=== PATIENT | male | born 1990 | race Caucasian/White ===

== ENCOUNTER 2017-01-02 05:50 | Day surgery (SDC) | payer OTHER ==
[~2017-01-02] VITALS: Ht 195.6 cm; Wt 87.4 kg
[2017-01-02] VITALS (7 sets, daily range): BP systolic 127–142; BP diastolic 56–80; PULSE 56–82; RESP 12–18; O2SAT 99–100
[~2017-01-02 05:50] MED LIST: CeFAZolin Inj 2 GM in IV Premix 1 EACH IV ONE; SERT20OR6 PO
[2017-01-02] MEDS ORDERED: Propofol 10,000 mCg/mL 20 mL Inj ONE (05:51)
[2017-01-02] MEDS ORDERED: Glycopyrrolate 0.2 MG/ML 1mL Inj ONE (05:51)
[2017-01-02] MEDS ORDERED: fentaNYL-PF 50 mCg/mL 2 mL Inj ONE (05:51)
[2017-01-02] MEDS ORDERED: Ondansetron 2 mg/mL 2 mL Inj ONE (05:51)
[2017-01-02] MEDS ORDERED: Rocuronium 10 mg/mL 5 mL Inj ONE (05:51)
[2017-01-02] MEDS ORDERED: Neostigmine 1 mg/mL 10 mL Inj ONE (05:51)
[2017-01-02] MEDS: Lactated Ringer's 1,000 ML IV SCH ×2 (05:54→07:36)
[2017-01-02] MEDS ORDERED: CeFAZolin Inj 2 gm / 50mL D5W IV ONE (05:55)
[2017-01-02] MEDS ORDERED: IBUP200C PO (06:48)
--- NOTE | 2017-01-02 06:54 | PCM.HPANE ---
Patient Data Surgeon Admitting Provider: Attending Provider:Misha Phan DPM Primary Care Physician:Harmeet Other Provider:Marcio Reyes Anesthesia Reason for Visit Traumatic Left Achilles Tendon Rupture Ht/WT & BMI Height (Feet): 6 Height (Inches): 5.00 Weight (Kilograms): 87.4 Body Mass Index 22.00 Allergies Coded Allergies: No Known Allergies (Unverified , 12/31/16) Past Anesthesia History Anesthesia History: Denies:: Anesthesia Reactions, Malignant Hyperthermia Diabetes History Hx Diabetes?: No Medications Home Meds Incl Beta Taylor: No Reported Medications Ibuprofen 200 Mg [id number] Mg PO QID PRN For Pain Ref 0 01/02/17 Sertraline HCl (Sertraline)20 Mg/1 Ml Oral.conc75 Mg PO DAILY #1 BOTTLE Ref 0 12/31/16 History History of ENT Problems?: No HEENT History: Denies:: Abnormal Airway Cataracts Difficult Intubation Dysphagia Glaucoma Hearing Problem Sinus Problem TMJ Denture Type: None Teeth Condition: Within Normal Limits Hx of Heart Problems?: No Cardiovascular History: Denies:: AICD Abdominal Aortic Aneurism Atrial Fibrillation Cardiac Surgery Chest Pain Congestive Heart Failure Coronary Artery Disease Edema Heart Murmur Hypertension Irregular Heartbeat Pacemaker Peripheral Vascular Rheumatic Fever Thrombophlebitis Valvular Heart Disease Hx of Respiratory Problem?: No Respiratory History: Denies:: Asthma COPD Chest Surgery Cough Dyspnea Emphysema Hemoptysis Oxygen Administration Pneumonia Pulmonary Embolism Tuberculosis Use of C-PAP Machine Use of Inhalers / NEBS Hx Neurologic Problems?: No Neurological History: Denies:: Alzheimer's Disease CVA Dementia Dizziness Headaches Multiple Sclerosis Parkinson's Disease Peripheral Neuropathy Seizures TIA Hx of GI Problems?: Yes Gastrointestinal History: Denies:: Cirrhosis Diverticulitis Gall Bladder Disease Gastroesphageal Reflux Gastrointestinal Bleeding Heartburn Hepatitis Hiatal Hernia Liver Disease Rectal Bleeding Other GI Pertinent History: S/P LT INGUINAL HERNIA RPR-CHILDHOOD Hx of Problems?: No HX of Peritoneal Dialysis: No Skin History: Positive for:: History Skin Disorders? (S/P EXC CYST RT CHEEK) Hx Musculoskeletal Problems?: Yes Musculoskeletal History: Positive for:: Musculoskeletal Trauma (HX FX LT HAND 5TH DIGIT LT ACHILLES TENDON RUPTURE=CURRENT PROBLEM) Hx of Psycho/Social Problems?: Yes Psycho Social History: Positive for:: Anxiety (SITUATIONAL) Hx Surgeries?: Yes (EXC CYST RT CHEEK,LT INGUINAL HERNIA RPR) Hx Any Other Health Problems?: Yes Other History: Denies:: Cancer Endocrine Disease Hx Diabetes: No Stop/Bang S-Snoring: Do You Snore Loudly: No T-Tired: feel tired, fatigued: No O-Obsered: Observed not breath: No P-Blood Pressure: treated: No B- Body Mass Index > 35 kg/m2: No A- Age over 50: No N- Neck Large Circumference: No G- Gender Male: Yes SHIRLEY Total Score: 1 Risk Assessment Category Category 1A: Patient has history of documented sleep apnea, and HAS NOT received any narcotic, sedative or anesthesia administration during this stay. Category 1B: Patient has history of documented sleep apnea, and HAS received any narcotic , sedative or anesthesia administration during this stay Category 2: Patient has SUSPECTED Obstructive Sleep Apnea, and HAS received any narcotic , sedative or anesthesia administration during this stay. Category 3: Patient has SUSPECTED Obstructive Sleep Apnea and HAS NOT received narcotic, sedative or anesthesia administration during this stay. Category 4: Outpatient in Procedural Areas with known sleep apnea or who screen positive for High Risk via the STOP/BANG questionnaire. Exam Exam Vital Signs Vital Signs Date Time Temp Pulse Resp B/P Pulse Ox O2 Delivery O2 Flow Rate FiO2 01/02/17 06:40 59 16 127/60 100 01/02/17 06:30 36.9 82 18 142/64 99 Room Air General Appearance: Alert, Oriented X3, Cooperative, No Acute Distress HEENT/AIRWAY: MP 2, Neck Movement (from), Mouth Opening (wnl) Lungs: Clear to Auscultation Heart: Exam Unremarkable Meds/Labs/Diagnostics Admission Meds Current Medications Lactated Ringer's (Lr) 1,000 ml @ 120 mls/hr Q8H20M IV Last administered on t 05:54; Start 01/02/17 at 05:00; Stop 01/02/17 at 13:19 Plan Impression Patient chart reviewed, patient interviewed and anesthestic plan with risks, benefits, and alternatives discussed, and informed consent obtained. ASA Physical Status: ASA2 Mod Systemic Disease Anesthetic Plan: GA Bene/Risks/Altern/Consents: Yes HP Complete Prior to Induction: Yes Tomás Hodges MD January 02, 2017 06:54
[2017-01-02] MEDS ORDERED: Bupivacaine 0.5%/EPI 50 mL Inj INFILTRATE ONE (08:21)
[2017-01-02] MEDS ORDERED: Lactated Ringer's 1,000 ML IV ONE (08:38)
[2017-01-02] MEDS ORDERED: Lactated Ringer's 1,000 ML IV SCH (08:48)
[2017-01-02] MEDS ORDERED: Lactated Ringer's 500 ML IV PRN (08:48)
[2017-01-02] MEDS ORDERED: Atropine 0.4 mg/mL Inj IVPUSH PRN (08:50)
[2017-01-02] MEDS ORDERED: Ondansetron 2 mg/mL 2 mL Inj IVPUSH PRN (08:50)
[2017-01-02] MEDS ORDERED: Phenylephrine 10,000 mCg/mL Inj IVPUSH PRN (08:50)
[2017-01-02] MEDS ORDERED: Labetalol 5 mg/mL 4 mL Inj IV PRN (08:50)
[2017-01-02] MEDS ORDERED: hydrALAZINE 20 mg/mL Inj IVPUSH PRN (08:50)
[2017-01-02] MEDS ORDERED: EPHEDrine Sulfate 50 mg/mL Inj IVPUSH PRN (08:50)
[2017-01-02] MEDS ORDERED: fentaNYL-PF 50 mCg/mL 2 mL Inj IVPUSH PRN (08:50)
[2017-01-02] MEDS ORDERED: HYDROmorphone 1 mg/mL Inj IVPUSH PRN (08:50)
[2017-01-02] MEDS ORDERED: Dexamethasone 4 mg/mL Inj IVPUSH PRN (08:50)
--- NOTE | 2017-01-02 10:52 | PCM.ANEP1 ---
Post Anesthesia PACU Phase 1 Assessment Vital Signs Vital Signs Date Time Temp Pulse Resp B/P Pulse Ox O2 Delivery O2 Flow Rate FiO2 01/02/17 10:30 56 12 130/70 99 Room Air 01/02/17 10:05 61 14 130/60 99 Room Air 01/02/17 10:00 63 13 130/58 100 Room Air 01/02/17 09:53 36.3 63 12 128/56 100 Room Air 01/02/17 06:40 59 16 127/60 100 01/02/17 06:30 36.9 82 18 142/64 99 Room Air Anesthetic Administered: GA Level of Alertness: Awake, talking QUINTANILLA's with Equal Strength: Yes Pain: No Nausea or Vomiting: No CV Function and Hydration: No Airway Device: Oxygen Delivery: Room Air Lungs: Normal Air Movement PACU Phase 2 Assessment Complications: No Follow up Care: No Patient Instructions Provided: N/A Tomás Hodges MD January 02, 2017 10:52
[2017-01-02] MEDS ORDERED: oxyCODONE-Acetamin 5-325 mg Tablet PO ONE ×2 (11:22→11:40)
[2017-01-02] MEDS ORDERED: hydrOXYzine Pamoate 25 mg Capsule ONE (11:39)
--- NOTE | 2017-01-03 17:35 | OP ---
[address] [address] OPERATIVE REPORT PATIENT: SYLVIE PEARSON : 1990 MR#: [id number] ADMIT: 01/02/2017 JOB ID: [id number] DATE OF SURGERY: 01/02/2017 SURGEON: Misha Phan DPM PREOPERATIVE DIAGNOSIS(ES): Traumatic myotendinous rupture of left Achilles. POSTOPERATIVE DIAGNOSIS(ES): Traumatic myotendinous rupture of left Achilles. PLANNED PROCEDURE: Open repair and augmentation of left Achilles. ANESTHESIA: General with local block. HEMOSTASIS: None. ESTIMATED BLOOD LOSS: Less than 5 cc. COMPLICATIONS: None. PROCEDURE AND FINDINGS: This patient was brought to the operating room and placed on the table in prone position after inducing general anesthesia. We checked all relevant pressure points and accommodated them for skin protection. The left lower extremity was prepped and draped in normal sterile surgical manner. Prior to incision, I placed an incisional block with 2% lidocaine with epinephrine. The incision was placed on the medial margin of the palpable left Achilles. The location and length of incision guided by MRI findings which were available for use in surgery. The incision was carried down to the paratenon using sharp and blunt dissection, carefully cauterizing and/or ligating any bleeders that were encountered. No major vascular or neurologic structures were exposed. Caution was given to preserving the soft tissue planes lateral to the medial of center incision. The paratenon was then incised in a linear fashion from proximal to distal. There was an area of damage to this tissue plane corresponding to the underlying Achilles damage. The tendon was found to be grossly frayed with numerous levels of avulsion at the myotendinous juncture. There were still some areas of tendon retained within the muscle which were preserved and prepared as part of this correction. I was able to reestablish normal 50-70 degree rotation of the tendon body prior to temporary placement into the deficit. I then freed an area at the gastroc and soleus interface, fashioning this into a bundle and incorporating the plantaris tendon which was found to be intact and in excellent position for augmentation. The foot was placed at approximately 0 degrees of dorsiflexion in the sagittal plane and held there by my resident assistant cna throughout the repair. I was able to remove all areas of organized hematoma and areas of damaged or frayed tendon ends to produce healthy enough tissue for the repair. The central free autograft was placed to bridge the apparent deficit. I then brought the fibers into apposition from each side and utilized a Krackow suture technique with 0-Vicryl on the central portion to create a central connecting bundle and then on the medial and lateral portion, creating three bundles each placed to incorporate into a smooth surface with deeply buried knots. I then secured the avulsed distal aspect of the soleus muscle capsule to the repaired tendon body approximately 5 cm from the Achilles insertion. The insertion itself was found to be in good condition. I then replaced paratenon around the repaired tendon and close it with a running interlocking 3-0 Vicryl suture. Fascial plane was closed in like fashion so that each layer was slightly lateral to the medial skin incision. This prevented a deep dehiscence should superficial dehiscence occur. I placed three subcutaneous retention sutures of 3-0 Vicryl into the skin plane prior to a running subcutaneous skin closure with deeply buried knots in proximal and distal aspects. The incision was further stabilized with Steri-Strips over tincture of benzoin. I placed saline moistened Olvera silk, followed by saline moistened gauze, gauze fluffs, Kerlix roll. The patient was placed in a [id number] modified Shirley compression dressing with posterior fiberglass splint. He maintained immediate CFT throughout the procedure to all digits given use of tourniquet. A durable posterior block was performed with 0.5% bupivacaine with epinephrine. The patient was recovered in the operating room in stable condition, having tolerated the procedure and anesthetic well. He was in no apparent distress or discomfort at the end of the procedure. He was transferred to PACU for further recovery and then onto Day Surgery. POSTOPERATIVE PLAN: The patient is counseled to stay off the foot and to keep the dressings clean, dry and intact until next visit. He is given after hours contact numbers should he have any questions or issues over the weekend. I will also follow him with phone interview over the weekend as well. I anticipate complete recovery to normal activities given adequate recovery. Given his age and the fact that the rupture began at the myotendinous juncture, I anticipate fairly quick healing. He may be back to weightbearing ambulation at 4-6 weeks and certainly back to range of motion at 3. He had his questions answered at bedside prior to my departure and his discharge from hospital. My thanks to the Surgical and Anesthesia teams for their expert assistance with this nice, young gentleman.
== END 2017-01-02 23:59 | disposition home or self-care (01) ==
LOC: SAS 05:50
PROVIDERS: ATTEND Podiatrist
DX: S86.012A Strain of left Achilles tendon, initial encounter (principal); X50.0XXA Overexertion from strenuous movement or load, initial encounter; Y93.67 Activity, basketball; Y92.310 Basketball court as the place of occurrence of the external cause; F41.9 Anxiety disorder, unspecified
CPT/HCPCS: 27650; J0690; J2250; J2405; J2710; J3010; J7120; Q0177